=== PATIENT | female | born 1940 | race Asian ===

== ENCOUNTER 2020-08-11 21:56 | Inpatient (IN) | payer MEDICARE, OTHER ==
[~2020-08-11] VITALS: Ht 154.9 cm; Wt 66.0 kg
[2020-08-11] MEDS ORDERED: ACETAMINOPHEN 500 MG TAB PO ONE (22:45)
[2020-08-11 22:59] LABS: Basophils # (auto) 0.1 10 ^3/uL (0-0.2); Basophils % (auto) 0.8 % (0.0-2.0); Eosinophils # (auto) 0.3 10 ^3/uL (0-0.8); Eosinophils % (auto) 3.1 % (0.0-7.0); Hematocrit 29.7 % (36.0-46.0); Hemoglobin 9.6 g/dL (12.2-16.2); Lymphocytes # (auto) 1.8 10 ^3/uL (0.4-5.4); Lymphocytes % (auto) 16.2 % (10.0-50.0); Mean Corpuscular Hgb Conc. 32.5 g/dL (32.0-36.0); Mean Corpuscular Volume 86.4 fL (80.0-100.0); Monocytes # (auto) 0.9 10 ^3/uL (0-1.3); Neutrophils # (auto) 7.8 10 ^3/uL (1.6-8.6); Neutrophils % (auto) 71.9 % (37.0-80.0); Platelet Count (auto) 180 10^3/uL (140-450); Red Blood Cells 3.44 10^6/uL (4.0-5.20); Red Cell Distribution Width 15.4 % (11.8-14.3); White Blood Cell 10.9 10^3/uL (4.4-10.8)
[2020-08-11 23:24] LABS: INR 0.97 (0.9-1.15); Partial Thromboplastin Time 27.3 sec (23.0-31.2)
[2020-08-11 23:46] LABS: Albumin 3.3 g/dL (3.4-5.0); Calcium 7.4 mg/dL (8.5-10.1); Potassium 3.5 mmol/L (3.5-5.1)
[2020-08-11 23:49] LABS: BUN/Creatinine Ratio 18.5; Bilirubin, Total 0.4 mg/dL (0.2-1.0); Total Protein 7.3 g/dL (6.4-8.2)
[2020-08-12] MEDS ORDERED: IPRATROPIUM BROM 0.5 MG/2.5ML INH SOL NEB ONE (00:45)
[2020-08-12] MEDS ORDERED: ALBUTEROL SULF 2.5 MG/0.5ML(0.5%) NEB SOLN NEB ONE (00:45)
[2020-08-12 05:01] LABS: CRP High Sensitivity 7.65 mg/dL (< 0.3)
[2020-08-12] MEDS ORDERED: MORPHINE SULF INJ 2 MG/ML SYRINGE 1ML IV PRN (06:00)
[2020-08-12] MEDS ORDERED: MORPHINE SULFATE 4 MG/ML SYR/VIAL IV PRN (06:00)
[2020-08-12] MEDS ORDERED: NITROGLYCERIN 0.4 MG SL TAB SL PRN (06:00)
[2020-08-12] MEDS ORDERED: ACETAMINOPHEN 325 MG TAB PO PRN (06:00)
[2020-08-12] MEDS ORDERED: HYDROcodone-ACET 5/325MG TAB PO PRN (06:00)
[2020-08-12] MEDS ORDERED: DOCUSATE SOD 100 MG CAP PO PRN (06:00)
[2020-08-12] MEDS ORDERED: SODIUM CHLORIDE 0.9% 1,000 ML IV SCH (06:00)
[2020-08-12] MEDS ORDERED: ONDANSETRON HCL 4 MG/2 ML VIAL IV PRN (06:00)
[2020-08-12] MEDS: ALBUTEROL SULF 2.5 MG/0.5ML(0.5%) NEB SOLN NEB SCH ×4 (06:38→21:54)
[2020-08-12] MEDS: IPRATROPIUM BROM 0.5 MG/2.5ML INH SOL NEB SCH ×4 (06:38→21:54)
[2020-08-12 07:30] LABS: Basophils # (auto) 0 10 ^3/uL (0-0.2); Basophils % (auto) 0.3 % (0.0-2.0); Eosinophils # (auto) 0.3 10 ^3/uL (0-0.8); Eosinophils % (auto) 3.5 % (0.0-7.0); Hematocrit 29.8 % (36.0-46.0); Hemoglobin 9.6 g/dL (12.2-16.2); Lymphocytes # (auto) 1.2 10 ^3/uL (0.4-5.4); Lymphocytes % (auto) 12.9 % (10.0-50.0); Mean Corpuscular Hemoglobin 27.9 pg (28.0-32.0); Mean Corpuscular Hgb Conc. 32.4 g/dL (32.0-36.0); Mean Corpuscular Volume 86.1 fL (80.0-100.0); Monocytes # (auto) 0.6 10 ^3/uL (0-1.3); Monocytes % (auto) 6.7 % (0.0-12.0); Neutrophils # (auto) 7.3 10 ^3/uL (1.6-8.6); Neutrophils % (auto) 76.6 % (37.0-80.0); Nucleated Red Blood Cells % 0.1 %; Platelet Count (auto) 194 10^3/uL (140-450); Red Blood Cells 3.46 10^6/uL (4.0-5.20); Red Cell Distribution Width 15.5 % (11.8-14.3); White Blood Cell 9.5 10^3/uL (4.4-10.8)
[2020-08-12 07:43] LABS: Potassium 4.3 mmol/L (3.5-5.1)
[2020-08-12 07:47] LABS: Albumin 3.4 g/dL (3.4-5.0); BUN/Creatinine Ratio 17.2; Calcium 8.4 mg/dL (8.5-10.1)
[2020-08-12 07:50] LABS: Bilirubin, Total 0.4 mg/dL (0.2-1.0); Total Protein 7.2 g/dL (6.4-8.2)
[2020-08-12] MEDS: cefTRIAXone 1GM/50ML D5W 50 ML IV SCH (09:45)
[2020-08-12] MEDS ORDERED: ZINC SULFATE 220mg CAP or TAB PO SCH (10:00)
[2020-08-12] MEDS ORDERED: FAMOTIDINE (10MG/ML) 2ML VL IV SCH (10:00)
[2020-08-12] MEDS: MULTIPLE VITAMIN TAB PO SCH (10:02)
[2020-08-12] MEDS: ASCORBIC ACID 500 MG TAB PO SCH ×2 (10:02→23:22)
[2020-08-12] MEDS: HEPARIN SODIUM (PORCINE) 5000 UNITS/ML 1ML VIAL SC SCH ×2 (10:02→23:23)
[2020-08-12] MEDS: FAMOTIDINE 20 MG TAB PO SCH ×2 (10:02→23:22)
[2020-08-12] MEDS ORDERED: TEMA30CA PO (13:42)
[2020-08-12] MEDS ORDERED: SIMV-8 PO (13:42)
[2020-08-12] MEDS ORDERED: ACET300T2 PO (13:42)
[2020-08-12] MEDS ORDERED: HYDR12.56 PO (13:42)
[2020-08-12 21:35] VITALS: BP 154/86
[2020-08-12 22:00] VITALS: BP 154/86
[2020-08-12] MEDS: METOPROLOL TARTRATE 25 MG TAB PO SCH (23:22)
[2020-08-13] MEDS: TEMAZEPAM 15 MG CAP PO PRN ×2 (00:53→21:55)
[2020-08-13 05:00] VITALS: BP 155/84
[2020-08-13] MEDS: IPRATROPIUM BROM 0.5 MG/2.5ML INH SOL NEB SCH ×3 (06:39→20:30)
[2020-08-13] MEDS: ALBUTEROL SULF 2.5 MG/0.5ML(0.5%) NEB SOLN NEB SCH ×3 (06:39→20:30)
[2020-08-13 06:45] LABS: Basophils # (auto) 0 10 ^3/uL (0-0.2); Basophils % (auto) 0.3 % (0.0-2.0); Eosinophils # (auto) 0.2 10 ^3/uL (0-0.8); Eosinophils % (auto) 2.3 % (0.0-7.0); Hematocrit 34.5 % (36.0-46.0); Hemoglobin 11.7 g/dL (12.2-16.2); Lymphocytes # (auto) 0.8 10 ^3/uL (0.4-5.4); Lymphocytes % (auto) 11.3 % (10.0-50.0); Mean Corpuscular Hemoglobin 28.4 pg (28.0-32.0); Mean Corpuscular Hgb Conc. 33.8 g/dL (32.0-36.0); Mean Corpuscular Volume 84.1 fL (80.0-100.0); Monocytes # (auto) 0.5 10 ^3/uL (0-1.3); Monocytes % (auto) 6.3 % (0.0-12.0); Neutrophils # (auto) 5.9 10 ^3/uL (1.6-8.6); Neutrophils % (auto) 79.8 % (37.0-80.0); Nucleated Red Blood Cells % 0.2 %; Platelet Count (auto) 245 10^3/uL (140-450); Red Cell Distribution Width 15.2 % (11.8-14.3); White Blood Cell 7.4 10^3/uL (4.4-10.8)
[2020-08-13 07:01] LABS: Albumin 3.7 g/dL (3.4-5.0); Calcium 9.6 mg/dL (8.5-10.1); Potassium 3.8 mmol/L (3.5-5.1)
[2020-08-13 07:05] LABS: BUN/Creatinine Ratio 14.3; Bilirubin, Total 0.8 mg/dL (0.2-1.0); Total Protein 8.4 g/dL (6.4-8.2)
[2020-08-13 08:00] VITALS: BP 143/94
[2020-08-13] MEDS: MULTIPLE VITAMIN TAB PO SCH (09:14)
[2020-08-13] MEDS: ASCORBIC ACID 500 MG TAB PO SCH ×2 (09:14→21:55)
[2020-08-13] MEDS: FAMOTIDINE 20 MG TAB PO SCH ×2 (09:14→21:55)
[2020-08-13] MEDS: METOPROLOL TARTRATE 25 MG TAB PO SCH ×2 (09:19→22:08)
[2020-08-13] MEDS: cefTRIAXone 1GM/50ML D5W 50 ML IV SCH (09:19)
[2020-08-13] MEDS: HEPARIN SODIUM (PORCINE) 5000 UNITS/ML 1ML VIAL SC SCH ×2 (09:20→21:54)
[2020-08-13] MEDS ORDERED: FUROSEMIDE 40 MG/4 ML VIAL IV ONE (11:15)
[2020-08-13 16:00] VITALS: BP 157/87
[2020-08-13] MEDS ORDERED: LABETALOL HCL 5 MG/ML 4ML SYRINGE IV PRN (21:00)
[2020-08-13] MEDS ORDERED: amLODIPine BESYLATE 5 MG TAB PO ONE (21:00)
[2020-08-13 22:00] VITALS: BP 141/94
[2020-08-14 05:00] VITALS: BP 132/81
[2020-08-14] MEDS: IPRATROPIUM BROM 0.5 MG/2.5ML INH SOL NEB SCH (06:00)
[2020-08-14] MEDS: ALBUTEROL SULF 2.5 MG/0.5ML(0.5%) NEB SOLN NEB SCH (06:00)
[2020-08-14 07:38] VITALS: BP 131/69
[2020-08-14] MEDS: cefTRIAXone 1GM/50ML D5W 50 ML IV SCH (09:00)
[2020-08-14 09:45] LABS: BUN/Creatinine Ratio 22.4; Calcium 9.8 mg/dL (8.5-10.1); Potassium 3.1 mmol/L (3.5-5.1)
[2020-08-14] MEDS: MULTIPLE VITAMIN TAB PO SCH (10:00)
[2020-08-14] MEDS: FAMOTIDINE 20 MG TAB PO SCH ×2 (10:00→22:18)
[2020-08-14] MEDS: HEPARIN SODIUM (PORCINE) 5000 UNITS/ML 1ML VIAL SC SCH ×2 (10:00→22:21)
[2020-08-14] MEDS ORDERED: POTASSIUM CHL 20 Meq TABLET PO ONE (10:15)
[2020-08-14] MEDS ORDERED: FUROSEMIDE 40 MG/4 ML VIAL IV ONE (10:15)
[2020-08-14] MEDS ORDERED: DEXTROSE (50%) 50ML SYRG IV PRN (10:30)
[2020-08-14] MEDS ORDERED: IPRATROPIUM BROM 0.5 MG/2.5ML INH SOL NEB PRN (10:30)
[2020-08-14] MEDS ORDERED: ALBUTEROL SULF 2.5 MG/0.5ML(0.5%) NEB SOLN NEB PRN (10:30)
[2020-08-14] MEDS: InsuLIN REG 1unit/0.01ml Soln (100units/ml) SC SCH ×3 (11:30→22:21)
[2020-08-14] MEDS: ACCU-CHEK COMFORT CURVE STRIP VI SCH ×3 (11:30→22:19)
[2020-08-14 12:53] LABS: Free T4 (Free Thyroxine) 1.13 ng/dL (0.89-1.76)
[2020-08-14 12:54] LABS: Free T3 2.08 pg/mL (2.3-4.2)
[2020-08-14] MEDS ORDERED: ERGOCALCIFEROL 50,000 UNIT(1.25MG) CAP PO SCH (13:00)
[2020-08-14 15:59] VITALS: BP 113/73
[2020-08-14 22:00] VITALS: BP 112/75
[2020-08-14] MEDS ORDERED: amLODIPine BESYLATE 5 MG TAB PO SCH (22:00)
[2020-08-14] MEDS: METOPROLOL TARTRATE 25 MG TAB PO SCH (22:18)
[2020-08-15 04:55] VITALS: BP 120/70
[2020-08-15] MEDS: InsuLIN REG 1unit/0.01ml Soln (100units/ml) SC SCH (06:16)
[2020-08-15] MEDS: ACCU-CHEK COMFORT CURVE STRIP VI SCH ×2 (06:18→11:56)
[2020-08-15 06:44] LABS: Basophils # (auto) 0.1 10 ^3/uL (0-0.2); Basophils % (auto) 0.7 % (0.0-2.0); Eosinophils # (auto) 0.1 10 ^3/uL (0-0.8); Eosinophils % (auto) 1.5 % (0.0-7.0); Hematocrit 38.2 % (36.0-46.0); Hemoglobin 12.8 g/dL (12.2-16.2); Lymphocytes # (auto) 2.1 10 ^3/uL (0.4-5.4); Lymphocytes % (auto) 27.3 % (10.0-50.0); Mean Corpuscular Hgb Conc. 33.5 g/dL (32.0-36.0); Mean Corpuscular Volume 83.6 fL (80.0-100.0); Monocytes # (auto) 0.6 10 ^3/uL (0-1.3); Monocytes % (auto) 8.4 % (0.0-12.0); Neutrophils # (auto) 4.8 10 ^3/uL (1.6-8.6); Neutrophils % (auto) 62.1 % (37.0-80.0); Nucleated Red Blood Cells % 0.1 %; Platelet Count (auto) 340 10^3/uL (140-450); Red Blood Cells 4.57 10^6/uL (4.0-5.20); Red Cell Distribution Width 15.1 % (11.8-14.3); White Blood Cell 7.7 10^3/uL (4.4-10.8)
[2020-08-15 07:04] LABS: Albumin 3.9 g/dL (3.4-5.0); Calcium 9.4 mg/dL (8.5-10.1); Potassium 3.5 mmol/L (3.5-5.1)
[2020-08-15 07:10] LABS: BUN/Creatinine Ratio 24.3; Bilirubin, Total 0.5 mg/dL (0.2-1.0); Total Protein 9.1 g/dL (6.4-8.2)
[2020-08-15] MEDS: cefTRIAXone 1GM/50ML D5W 50 ML IV SCH (07:47)
[2020-08-15] MEDS: METOPROLOL TARTRATE 25 MG TAB PO SCH (07:47)
[2020-08-15] MEDS: FAMOTIDINE 20 MG TAB PO SCH (07:48)
[2020-08-15] MEDS: MULTIPLE VITAMIN TAB PO SCH (07:48)
[2020-08-15] MEDS: HEPARIN SODIUM (PORCINE) 5000 UNITS/ML 1ML VIAL SC SCH (08:20)
[2020-08-15 09:00] VITALS: BP 110/65
[2020-08-15] MEDS ORDERED: ASPirin-EC 81 mg tab PO SCH (10:00)
[2020-08-15] MEDS ORDERED: ASPI-231 PO (10:32)
[2020-08-15] MEDS ORDERED: ERGO1CAP23 PO (10:32)
[2020-08-15] MEDS ORDERED: MET25T PO (10:32)
[2020-08-15] MEDS ORDERED: FURO40TA4 PO (10:32)
[2020-08-15] MEDS ORDERED: AMLO-496 PO (10:32)
[2020-08-15 13:00] VITALS: BP 124/78
== END 2020-08-15 14:05 | disposition home or self-care (01) | DRG 291 ==
LOC: EDBD 21:56 → ER 22:02 → TELE 22:03 → TELE-CENTR 08-12 21:23 → TELE-WESTW 08-13 12:32 → TELE-CENTR 08-14 01:05
PROVIDERS: ADMIT Nurse Practitioner Family; ATTEND Internal Medicine
DX: I13.0 Hypertensive heart and chronic kidney disease with heart failure and stage 1 through stage 4 chronic kidney disease, or unspecified chronic kidney disease (principal); J96.01 Acute respiratory failure with hypoxia; N17.0 Acute kidney failure with tubular necrosis; I50.31 Acute diastolic (congestive) heart failure; J45.901 Unspecified asthma with (acute) exacerbation; Z20.822 Contact with and (suspected) exposure to COVID-19; R50.9 Fever, unspecified; R73.9 Hyperglycemia, unspecified; N18.32 Chronic kidney disease, stage 3b; D64.9 Anemia, unspecified; E78.5 Hyperlipidemia, unspecified; E55.9 Vitamin D deficiency, unspecified; E87.6 Hypokalemia; Z79.899 Other long term (current) drug therapy
CPT/HCPCS: 36415; 70450; 71045; 80048; 80053; 80061; 82306; 82962; 83036; 83605; 83615; 83880; 84439; 84443; 84481; 84484; 85025; 85379; 85610; 85730; 86141; 87040; 87426; 93005; 93306; 94640; 96365; 97110; 97116; 97530; G0378; J0696; J1815